=== PATIENT | female | born 1950 | race Caucasian/White ===

== ENCOUNTER 2021-06-23 16:09 | Inpatient (IN) ==
--- NOTE | 2021-06-23 17:26 | Emergency Department Note ---
GI Bleed HPI General Chief complaint: Rectal Bleed Stated complaint: Low h&h, lower gi bleed Time Seen by Provider: 06/23/21 17:05 Source: EMS Mode of arrival: EMS Limitations: no limitations History of Present Illness HPI Narrative: Narrative: The patient presents from [facility] for reportedly having a GI bleed with anemia. The patient has a history of chronic anemia with a hemoglobin of baseline around 8. She said that last night she started to feel short of breath with exertion and when she went to the hospital, they said that her hemoglobin was lower than normal. They did a guaiac test on her stool and it was positive. They did a Covid test and it was negative. They attempted to transfer to another facility but were told that they did not have GI available and so transferred here. Unfortunately, we do not have GI available either. The patient denies nausea or vomiting. She denies abdominal pain. She denies chest pain. She denies dyspnea at rest. She does complain of the darker stools. She does complain of the dyspnea on exertion. She denies any other symptoms. Related Data Home Medications Medication Instructions Recorded Confirmed albuterol sulfate 90 mcg/actuation 2 puff INHALATION Q4-6H PRN g 01/20/16 03/10/21 aerosol inhaler blood sugar diagnostic 01/20/16 03/10/21 blood-glucose meter 01/20/16 03/10/21 fluoxetine 20 mg capsule 20 mg PO QDAY 01/20/16 03/10/21 albuterol sulfate 0.63 mg/3 mL 2.5 mg INHALATION Q4H PRN 04/08/16 03/10/21 solution for nebulization budesonide-formoterol [Symbicort] INHALATION BID 07/03/17 03/10/21 cholecalciferol (vitamin D3) 125 5,000 unit PO QDAY 01/23/19 03/10/21 mcg (5,000 unit) capsule atorvastatin 20 mg tablet 20 mg PO QHS tab 03/27/19 03/10/21 melatonin 10 mg capsule 10 mg PO HS PRN 12/31/19 03/10/21 insulin glargine 100 unit/mL (3 See Rx Instructions .ROUTE 03/16/20 03/10/21 mL) subcutaneous pen .COMPLEX 20 Days ml sitagliptin 25 mg tablet 25 mg PO QDAY 02/19/21 03/10/21 furosemide 40 mg tablet 40 mg PO QAM 03/10/21 03/10/21 prednisone 10 mg tablet 10 mg PO QDAY 03/10/21 03/10/21 Previous Rx's Medication Instructions Recorded gabapentin 400 mg capsule 400 mg PO QHS #90 cap 10/26/20 omeprazole 40 mg capsule,delayed 40 mg PO QDAY #30 cap 01/21/21 release Automated BP Cuff and pulse See Rx Instructions .ROUTE 02/19/21 .COMPLEX #1 ea diltiazem HCl 30 mg tablet 30 mg PO Q8H #90 tab 03/10/21 Allergies Allergy/AdvReac Type Severity Reaction Status Date / Time vancomycin [VANCOMYCIN] Allergy Severe ANAPHYLAXIS Verified 06/23/21 16:09 (CAN'T BREATH), HIVES allopurinol Allergy Intermediate Rash Verified 06/23/21 16:09 codeine [CODEINE] Allergy Intermediate HIVES Verified 06/23/21 16:09 hydrocodone [HYDROCODONE] Allergy Intermediate HIVES Verified 06/23/21 16:09 cephalexin Allergy Unknown Rash Verified 06/23/21 16:09 Ertapenem Allergy Unknown Hives/Skin Verified 06/23/21 16:09 Rash Review of Systems ROS ROS Narrative: Narrative: All systems ED: reviewed and negative except as stated. PFSH Narrative Patient History Narrative: Narrative: Medical/Surgical/Family History All Active Problems (Updated 06/23/21 @ 19:26 by Nabeel Robles MD) Chronic kidney disease (CKD), stage III (moderate) (Chronic) Diabetes mellitus, type II (Chronic) Hypertension (Chronic) Obesity (Chronic) Hyperlipidemia (Chronic) Metabolic syndrome (Chronic) Gout (Chronic) Fatigue (Chronic) Cough (Chronic) Multiple nodules of lung (Chronic) Pneumonia (Chronic) Chronic cough (Chronic) Dyspnea (Chronic) Wheezing (Chronic) Environmental allergies (Chronic) Pruritus (Chronic) Headache (Chronic) Chest pain (Chronic) Edema (Chronic) Chills (Chronic) Fever (Chronic) Malaise (Chronic) Night sweats (Chronic) Back pain (Chronic) Joint pain (Chronic) Lethargy (Chronic) Pale (Chronic) Decreased hearing (Chronic) Erythema (Chronic) Shallow breathing (Chronic) Lung nodule, solitary (Chronic) Disease (Chronic) Onychomycosis (Chronic) Hyponatremia (Chronic) Hyperkalemia (Chronic) COAD (chronic obstructive airways disease) (Chronic) Gastric reflux (Chronic) Cellulitis of lower leg (Chronic) Osteomyelitis (Chronic) Diarrhea (Chronic) Knee pain, bilateral (Chronic) Congestive heart failure (Acute) 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, 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) Controlled type 2 diabetes mellitus with diabetic polyneuropathy, with long-term current use of insulin (Chronic) Chronic respiratory failure not affecting current episode of care (Chronic) CKD stage 4 due to type 2 diabetes mellitus (Chronic) Controlled type 2 diabetes mellitus with chronic kidney disease, with long-term current use of insulin (Chronic) Hydronephrosis determined by ultrasound (Chronic) Multiple renal calculi (Chronic) Anemia (Acute) Acute GI bleeding (Acute) Medical History (Updated 06/23/21 @ 19:26 by Nabeel Robles MD) Back pain Cellulitis of lower leg Chest pain Chills Chronic cough Chronic kidney disease (CKD), stage III (moderate) CKD stage 4 due to type 2 diabetes mellitus Urine protein/Cr ratio ~3 in 2018. HgA1c good at present time COAD (chronic obstructive airways disease) Controlled type 2 diabetes mellitus with chronic kidney disease, with long-term current use of insulin It is my opinion this patient's diabetes is well controlled and while she has concomitant polyneuropathy I am thinking this is not the primary cause of her CKD 4. 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, worse at night Cough Decreased hearing Diabetes mellitus, type II Diarrhea Disease Bibasilar airspace disease with progression in the lingular region Dyspnea Edema Environmental allergies Erythema Fatigue Fever Gastric reflux Gout Headache Hyperkalemia Hyperlipidemia Hypertension Hyponatremia Joint pain Knee pain, bilateral Lethargy Lung nodule, solitary Malaise Metabolic syndrome Multiple nodules of lung Circumscribed nodules in the bases of both lungs Night sweats Obesity Onychomycosis Osteomyelitis Pale Pneumonia Pruritus Shallow breathing Wheezing Surgical History History of cholecystectomy History of elbow surgery History of eye surgery History of tubal ligation Family History (Updated 02/14/20 @ 10:26 by Emely M Lucio, RN) Other Diabetes HTN (hypertension) Social History Smoking Status: Former smoker Alcohol Intake Frequency: does not drink Substance Use: does not use Exam Narrative Narrative: Narrative: General Limitations: no limitations General appearance: Present alert and in no apparent distress Head Head: Present atraumatic and normal inspection Eye Eye: Present normal appearance ENT ENT: Present mucous membranes moist Neck Neck: Present normal inspection, full ROM and trachea midline Chest Chest: Present normal inspection and symmetric chest wall rise Respiratory Respiratory: Present normal lung sounds bilaterally; Absent respiratory distress Cardiovascular Cardiovascular: Present regular rate, normal rhythm and other (Bilateral radial 2+) Adbominal Abdominal: Present soft and normal bowel sounds; Absent distention, tenderness, guarding, rebound and rigidity Extremities Extremities: Present normal inspection, full ROM and pedal edema; Absent calf tenderness Back Back: Present full ROM Neurological Neurological: Present alert, oriented X3 and CN II-XII intact; Absent motor sensory deficit Psychiatric Psychiatric: Present normal affect and normal mood Skin Skin: Present warm (WNL) and dry Course Reevaluation(s) Reevaluation #1: I spoke to the general surgeon, Dr. Villafana. He said he would be willing to do the endoscopy has a consult if the hospitalist would be willing to admit Time: 19:11 Reevaluation #2: I spoke to the hospitalist, Dr. Henson. He said he would come down to evaluate the patient for local admission Time: 19:24 Vital Signs Vital signs: Vital Signs Temperature 98.1 F 06/23/21 16:09 Pulse Rate 110 H 06/23/21 16:09 Respiratory Rate 20 06/23/21 16:09 Blood Pressure 165/58 06/23/21 16:09 Pulse Oximetry (%) 94 06/23/21 16:09 Temperature 98.1 F 06/23/21 16:09 Pulse Rate 102 H 06/23/21 19:58 Respiratory Rate 19 06/23/21 19:58 Blood Pressure 141/65 06/23/21 19:16 Pulse Oximetry (%) 93 06/23/21 19:58 [facility] MDM Narrative Medical decision making narrative: Narrative: The patient presents for GI bleed and anemia. Given lack of any nausea or vomiting, gastric bleeding is unlikely. Patient is hemodynamically stable. We do not have GI on-call for us unfortunately. Patient states that she would like to go home if possible. Plan to repeat some of the labs. A CBC, CMP, BNP, and troponin. We will obtain a chest x-ray and EKG. It may be possible that the patient can receive a transfusion here in the ED and be discharged with outpatient follow-up. If not, patient may need to be transferred to a facility that has GI. Lab Data Lab results reviewed: Yes I reviewed the patient's lab results. Result diagrams: 06/23/21 17:15 06/23/21 17:15 Labs: Lab Results 06/23/21 06/23/21 06/23/21 Range/Units 17:15 17:15 17:15 WBC 8.3 (4.5-11.0) K/mcL RBC 1.94 L (3.59-5.38) M/mcL Hgb 5.7 L* (11.2-15.7) g/dL Hct 18.7 L* (34.1-44.9) % MCV 96.4 (80.0-100.0) fL MCH 29.4 (26.0-34.0) pg MCHC 30.5 L (31.0-36.0) g/dL RDW 13.2 (11.5-14.5) % Plt Count 267 (140-440) K/mcL MPV 8.9 (7.4-10.4) fL Neut % (Auto) 94.3 H (38.0-78.0) % Lymph % (Auto) 3.6 L (15.5-49.0) % [place] % (Auto) 2.0 (1.0-12.0) % Eos % (Auto) 0 (0.0-7.0) % Baso % (Auto) 0.1 (0.0-2.0) % Lymph # (Auto) 0.30 L (1.50-4.80) K/mcL [place] # (Auto) 0.17 (0.10-0.90) K/mcL Eos # (Auto) 0 (0.00-0.70) K/mcL Baso # (Auto) 0.01 (0.00-0.30) K/mcL Absolute Neutrophils 7.86 (1.80-8.00) K/mcL PT (11.9-14.5) sec INR (0.9-1.1) APTT (20.0-37.0) sec Sodium 133 (133-145) mmol/L Potassium 4.8 (3.3-5.1) mmol/L Chloride 97 (96-108) mmol/L Carbon Dioxide 21 L (22-30) mmol/L Anion Gap 15.0 (8.0-16.0) BUN 49 H (8-23) mg/dL Creatinine 2.4 H (0.6-1.1) mg/dL GFR Calculation 20 Glucose 394 H (70-105) mg/dL Calcium 8.8 (8.6-10.4) mg/dL Total Bilirubin < 0.2 (0.1-1.0) mg/dL AST 13 (<32) U/L ALT 13 (<40) U/L Alkaline Phosphatase 53 (39-117) U/L Troponin T 0.11 H* (<0.03) ng/mL Total Protein 6.6 (5.9-8.4) gm/dL Albumin 3.1 L (3.2-5.2) gm/dL Globulin 3.5 (2.2-3.7) gm/dL Albumin/Globulin Ratio 0.9 L (1.0-2.3) 06/23/21 Range/Units 17:16 WBC (4.5-11.0) K/mcL RBC (3.59-5.38) M/mcL Hgb (11.2-15.7) g/dL Hct (34.1-44.9) % MCV (80.0-100.0) fL MCH (26.0-34.0) pg MCHC (31.0-36.0) g/dL RDW (11.5-14.5) % Plt Count (140-440) K/mcL MPV (7.4-10.4) fL Neut % (Auto) (38.0-78.0) % Lymph % (Auto) (15.5-49.0) % [place] % (Auto) (1.0-12.0) % Eos % (Auto) (0.0-7.0) % Baso % (Auto) (0.0-2.0) % Lymph # (Auto) (1.50-4.80) K/mcL [place] # (Auto) (0.10-0.90) K/mcL Eos # (Auto) (0.00-0.70) K/mcL Baso # (Auto) (0.00-0.30) K/mcL Absolute Neutrophils (1.80-8.00) K/mcL PT 13.9 (11.9-14.5) sec INR 1.0 (0.9-1.1) APTT 38.0 H (20.0-37.0) sec Sodium (133-145) mmol/L Potassium (3.3-5.1) mmol/L Chloride (96-108) mmol/L Carbon Dioxide (22-30) mmol/L Anion Gap (8.0-16.0) BUN (8-23) mg/dL Creatinine (0.6-1.1) mg/dL GFR Calculation Glucose (70-105) mg/dL Calcium (8.6-10.4) mg/dL Total Bilirubin (0.1-1.0) mg/dL AST (<32) U/L ALT (<40) U/L Alkaline Phosphatase (39-117) U/L Troponin T (<0.03) ng/mL Total Protein (5.9-8.4) gm/dL Albumin (3.2-5.2) gm/dL Globulin (2.2-3.7) gm/dL Albumin/Globulin Ratio (1.0-2.3) EKG Data EKG #1: EKG attestation: Yes I reviewed and interpreted this EKG. and Yes There are no EKG findings of acute coronary syndrome EKG results narrative: Sinus, rate 100, normal axis, QTC 454, OK 156, n arrow complex QRS, no acute ST or T changes Discharge Plan Patient/Caregiver Discharge Instructions Pt seen by CHILD CARE CENTRE MANAGER/PA only: No Clinical Impression: Acute GI bleeding Anemia Qualifiers: Anemia type: other cause Other causes of anemia: acute posthemorrhagic Qualified Code(s): D62 - Acute posthemorrhagic anemia Patient Disposition: Xfer As Inpt ([facility]) Follow up with: Papo Guerra MD [Primary Care Provider] - Prescriptions: No Action gabapentin 400 mg capsule 400 mg PO QHS Qty: 90 RF: 3 omeprazole 40 mg capsule,delayed release(DR/EC) 40 mg PO QDAY Qty: 30 RF: 11 (DME) blood-glucose meter [Trueresult Blood Glucose Systm] [facility] [place] See Dose Instructions .ROUTE .MEDSUPPLY RF: 0 (DME) blood sugar diagnostic [Truetest Test Strips] strip See Dose Instructions .ROUTE .MEDSUPPLY RF: 0 albuterol sulfate [ProAir HFA] 90 mcg/actuation HFA aerosol inhaler 2 puff INHALATION Q4-6H PRNRF: 0 fluoxetine 20 mg capsule 20 mg PO QDAY RF: 0 albuterol sulfate 0.63 mg/3 mL solution for nebulization 2.5 mg INHALATION Q4H PRNRF: 0 insulin glargine 100 unit/mL (3 mL) insulin pen See Rx Instructions .ROUTE .COMPLEX 20 Days RF: 0 budesonide-formoterol INHALATION BID RF: 0 cholecalciferol (vitamin D3) 5,000 unit capsule 5,000 unit PO QDAY RF: 0 atorvastatin 20 mg tablet 20 mg PO QHS RF: 0 melatonin 10 mg capsule 10 mg PO HS PRNRF: 0 Januvia 25 mg tablet 25 mg PO QDAY RF: 0 Automated BP Cuff and pulse See Rx Instructions .ROUTE .COMPLEX Qty: 1 RF: 0 furosemide 40 mg tablet 40 mg PO QAM RF: 0 prednisone 10 mg tablet 10 mg PO QDAY RF: 0 diltiazem HCl 30 mg tablet 30 mg PO Q8H Qty: 90 RF: 11
[2021-06-23 18:26] LABS: Prothrombin Time 13.9 sec (11.9-14.5)
[2021-06-23 18:47] LABS: Basophils # (Auto) 0.01 K/mcL (0.00-0.30); Basophils % (Auto) 0.1 % (0.0-2.0); Eosinophils # (Auto) 0 K/mcL (0.00-0.70); Eosinophils % (Auto) 0 % (0.0-7.0); Hematocrit 18.7 % (34.1-44.9); Hemoglobin 5.7 g/dL (11.2-15.7); Lymphocytes % (Auto) 3.6 % (15.5-49.0); Mean Cell Volume 96.4 fL (80.0-100.0); Mean Corpuscular HGB Conc 30.5 g/dL (31.0-36.0); Mean Platelet Volume 8.9 fL (7.4-10.4); Monocytes # (Auto) 0.17 K/mcL (0.10-0.90); Neutrophils % (Auto) 94.3 % (38.0-78.0); Platelet Count 267 K/mcL (140-440); RBC 1.94 M/mcL (3.59-5.38); Red Cell Distribution Width 13.2 % (11.5-14.5); WBC 8.3 K/mcL (4.5-11.0)
[2021-06-23 18:56] LABS: ALT/SGPT 13 U/L (<40); AST/SGOT 13 U/L (<32); Albumin 3.1 gm/dL (3.2-5.2); Albumin/Globulin Ratio 0.9 (1.0-2.3); Alkaline Phosphatase 53 U/L (39-117); Bilirubin,Total < 0.2 mg/dL (0.1-1.0); Blood Urea Nitrogen 49 mg/dL (8-23); Calcium 8.8 mg/dL (8.6-10.4); Carbon Dioxide 21 mmol/L (22-30); Chloride 97 mmol/L (96-108); Globulin 3.5 gm/dL (2.2-3.7); Glomerular Filtration Rate 20; Glucose 394 mg/dL (70-105)
[2021-06-23] MEDS ORDERED: 0.9 % SODIUM CHLORIDE 250 ML IV SCH ×2 (19:00→22:45)
[2021-06-23] MEDS ORDERED: FUROSEMIDE 40 MG/4 ML VIAL IV ONE (19:41)
--- NOTE | 2021-06-23 19:44 | Internal Med History&Physical ---
HPI History of Present Illness Patient information: Note initiated : 06/23/21 at 7:37 pm Service Date, if different from initiated Date: [] Patient: Kayleen Wilson a 71 y/o F admitted on for Low h&h, lower gi bleed. Chief Complaint: [] History of present illness: Ms. Wilson is a 71 year old F Went into pulmonary hospital last night short of breath. She says they told her she had fluid on her lungs and gave her 60 mg of Lasix this morning she was urinating quite a bit as her shortness of breath is improved. However today she had dark tarry stools guaiac positive with a hemoglobin of 5.7 this is transferred here. She is mildly tachycardic but blood pressure stable. Case discussed with Dr. Villafana who will perform endoscopy. Patient states she has chronic cough from COPD is on 3 L normally. She says she has chronic edema in her legs but that has not changed. And she has a chronic chronic troponin elevation noted in the ER. She denies chest pain. She did have some dizziness lightheadedness yesterday. Review of Systems: Pertinent positives as above plus headache. Denies fever/chills/nausea/vomiting/chest or abdominal pain/cough/dyspnea. Remaining 10 point review of system reviewed negative PFSH PFSH All Active Problems (Updated 06/23/21 @ 19:26 by Nabeel Robles MD) Chronic kidney disease (CKD), stage III (moderate) (Chronic) Diabetes mellitus, type II (Chronic) Hypertension (Chronic) Obesity (Chronic) Hyperlipidemia (Chronic) Metabolic syndrome (Chronic) Gout (Chronic) Fatigue (Chronic) Cough (Chronic) Multiple nodules of lung (Chronic) Pneumonia (Chronic) Chronic cough (Chronic) Dyspnea (Chronic) Wheezing (Chronic) Environmental allergies (Chronic) Pruritus (Chronic) Headache (Chronic) Chest pain (Chronic) Edema (Chronic) Chills (Chronic) Fever (Chronic) Malaise (Chronic) Night sweats (Chronic) Back pain (Chronic) Joint pain (Chronic) Lethargy (Chronic) Pale (Chronic) Decreased hearing (Chronic) Erythema (Chronic) Shallow breathing (Chronic) Lung nodule, solitary (Chronic) Disease (Chronic) Onychomycosis (Chronic) Hyponatremia (Chronic) Hyperkalemia (Chronic) COAD (chronic obstructive airways disease) (Chronic) Gastric reflux (Chronic) Cellulitis of lower leg (Chronic) Osteomyelitis (Chronic) Diarrhea (Chronic) Knee pain, bilateral (Chronic) Congestive heart failure (Acute) 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, 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) Controlled type 2 diabetes mellitus with diabetic polyneuropathy, with long-term current use of insulin (Chronic) Chronic respiratory failure not affecting current episode of care (Chronic) CKD stage 4 due to type 2 diabetes mellitus (Chronic) Controlled type 2 diabetes mellitus with chronic kidney disease, with long-term current use of insulin (Chronic) Hydronephrosis determined by ultrasound (Chronic) Multiple renal calculi (Chronic) Anemia (Acute) Acute GI bleeding (Acute) Medical History (Updated 06/23/21 @ 19:26 by Nabeel Robles MD) Back pain Cellulitis of lower leg Chest pain Chills Chronic cough Chronic kidney disease (CKD), stage III (moderate) CKD stage 4 due to type 2 diabetes mellitus Urine protein/Cr ratio ~3 in 2018. HgA1c good at present time COAD (chronic obstructive airways disease) Controlled type 2 diabetes mellitus with chronic kidney disease, with long-term current use of insulin It is my opinion this patient's diabetes is well controlled and while she has concomitant polyneuropathy I am thinking this is not the primary cause of her CKD 4. 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, worse at night Cough Decreased hearing Diabetes mellitus, type II Diarrhea Disease Bibasilar airspace disease with progression in the lingular region Dyspnea Edema Environmental allergies Erythema Fatigue Fever Gastric reflux Gout Headache Hyperkalemia Hyperlipidemia Hypertension Hyponatremia Joint pain Knee pain, bilateral Lethargy Lung nodule, solitary Malaise Metabolic syndrome Multiple nodules of lung Circumscribed nodules in the bases of both lungs Night sweats Obesity Onychomycosis Osteomyelitis Pale Pneumonia Pruritus Shallow breathing Wheezing Surgical History History of cholecystectomy History of elbow surgery History of eye surgery History of tubal ligation Family History (Updated 02/14/20 @ 10:26 by Emely Valdes RN) Other Diabetes HTN (hypertension) Social History (Updated 02/14/20 @ 10:39 by Lawson Chandler MD) alcohol intake frequency: does not drink substance use type: does not use MEDS/ALLERGIES Home Medications and Allergies Home Medications Medication Instructions Recorded Confirmed Type albuterol sulfate 90 mcg/actuation 2 puff INHALATION Q4-6H PRN g 01/20/16 03/10/21 History aerosol inhaler blood sugar diagnostic 01/20/16 03/10/21 History blood-glucose meter 01/20/16 03/10/21 History fluoxetine 20 mg capsule 20 mg PO QDAY 01/20/16 03/10/21 History albuterol sulfate 0.63 mg/3 mL 2.5 mg INHALATION Q4H PRN 04/08/16 03/10/21 History solution for nebulization budesonide-formoterol [Symbicort] INHALATION BID 07/03/17 03/10/21 History cholecalciferol (vitamin D3) 125 5,000 unit PO QDAY 01/23/19 03/10/21 History mcg (5,000 unit) capsule atorvastatin 20 mg tablet 20 mg PO QHS tab 03/27/19 03/10/21 History melatonin 10 mg capsule 10 mg PO HS PRN 12/31/19 03/10/21 History insulin glargine 100 unit/mL (3 See Rx Instructions .ROUTE 03/16/20 03/10/21 History mL) subcutaneous pen .COMPLEX 20 Days ml gabapentin 400 mg capsule 400 mg PO QHS #90 cap 10/26/20 03/10/21 Rx omeprazole 40 mg capsule,delayed 40 mg PO QDAY #30 cap 01/21/21 03/10/21 Rx release Automated BP Cuff and pulse See Rx Instructions .ROUTE 02/19/21 03/10/21 Rx .COMPLEX #1 ea sitagliptin 25 mg tablet 25 mg PO QDAY 02/19/21 03/10/21 History diltiazem HCl 30 mg tablet 30 mg PO Q8H #90 tab 03/10/21 03/10/21 Rx furosemide 40 mg tablet 40 mg PO QAM 03/10/21 03/10/21 History prednisone 10 mg tablet 10 mg PO QDAY 03/10/21 03/10/21 History Allergies Allergy/AdvReac Type Severity Reaction Status Date / Time vancomycin [VANCOMYCIN] Allergy Severe ANAPHYLAXIS Verified 06/23/21 16:09 (CAN'T BREATH), HIVES allopurinol Allergy Intermediate Rash Verified 06/23/21 16:09 codeine [CODEINE] Allergy Intermediate HIVES Verified 06/23/21 16:09 hydrocodone [HYDROCODONE] Allergy Intermediate HIVES Verified 06/23/21 16:09 cephalexin Allergy Unknown Rash Verified 06/23/21 16:09 Ertapenem Allergy Unknown Hives/Skin Verified 06/23/21 16:09 Rash EXAM Constitutional Vitals: Temp Pulse Resp BP Pulse Ox 98.1 F 102 H 27 H 141/65 94 06/23/21 16:09 06/23/21 19:16 06/23/21 19:16 06/23/21 19:16 06/23/21 19:16 Exam: General: Alert, Awake, No acute Distress, obese Eyes/N/T: EOMI, PERRL, Head/Neck: neck supple, normocephalic atraumatic CV: Mildly tacky but regular, No murmurs, normal s1/s2 Pulm: Wheezing b/l and diminished, no rhonchi Abd: soft, nontender, +BS x4 Ext: no clubbing/cyanosis, 2-3+ b/l LE edema Neuro: Alert, no focal deficits, moves all extremities, CN 2-12 grossly intact, symmetrical strength b/l upper/lower, sensations intact b/l upper/lower Skin: warm/dry DATA Data Completed and Pending Labs: Labs from last 24 hours 06/23/21 06/23/21 06/23/21 17:16 17:16 17:15 WBC RBC Hgb Hct MCV MCH MCHC RDW Plt Count MPV Neut % (Auto) Lymph % (Auto) [place] % (Auto) Eos % (Auto) Baso % (Auto) Lymph # (Auto) [place] # (Auto) Eos # (Auto) Baso # (Auto) Absolute Neutrophils PT 13.9 INR 1.0 APTT 38.0 H Sodium Potassium Chloride Carbon Dioxide Anion Gap BUN Creatinine GFR Calculation Glucose Calcium Total Bilirubin AST ALT Alkaline Phosphatase Troponin T 0.11 H* B-Natriuretic Peptide Pending Total Protein Albumin Globulin Albumin/Globulin Ratio 06/23/21 06/23/21 17:15 17:15 WBC 8.3 RBC 1.94 L Hgb 5.7 L* Hct 18.7 L* MCV 96.4 MCH 29.4 MCHC 30.5 L RDW 13.2 Plt Count 267 MPV 8.9 Neut % (Auto) 94.3 H Lymph % (Auto) 3.6 L [place] % (Auto) 2.0 Eos % (Auto) 0 Baso % (Auto) 0.1 Lymph # (Auto) 0.30 L [place] # (Auto) 0.17 Eos # (Auto) 0 Baso # (Auto) 0.01 Absolute Neutrophils 7.86 PT INR APTT Sodium 133 Potassium 4.8 Chloride 97 Carbon Dioxide 21 L Anion Gap 15.0 BUN 49 H Creatinine 2.4 H GFR Calculation 20 Glucose 394 H Calcium 8.8 Total Bilirubin < 0.2 AST 13 ALT 13 Alkaline Phosphatase 53 Troponin T B-Natriuretic Peptide Total Protein 6.6 Albumin 3.1 L Globulin 3.5 Albumin/Globulin Ratio 0.9 L A/P Narrative A/P Narrative: A: *GI bleed: *Anemia, acute blood loss on chronic: -s/p lasix at outside facility *Acute on chronic Diastolic CHF: *COPD(3L NC @home): *CKD IV: Follows with Dr. Tran *DM: *HTN/HLD: *GERD: *Obesity: P: -2 PRBC transfusion with IV Lasix between, f/u H&H -Monitor fluid balance / weight closely -Dr. Villafana for endoscopy -cont home dilt/lasix -basal and ssi -cont home IH's -Medication reconciliation -pt/ot -ppx: SCD / home ppi full code Time Spent With Patient Time: Total time spent is greater than 50% in coordination of care (as documented) at patient's floor/unit and/or counseling patient:
--- NOTE | 2021-06-23 20:01 | EKG ---
[facility] Test Date: 2021-06-23 Pat Name: Kayleen Wilson Department: ED Room: Gender: Female [employer]: KW : 1950 Requested By: Nabeel Robles Order Number: [id number] Reading MD: Larry Gamez Measurements Intervals [place] Rate: 100 P: 80 TN: 156 QRS: 71 QRSD: 80 T: 67 QT: 352 QTc: 454 Interpretive Statements SINUS TACHYCARDIA Electronically Signed On 06-23-2021 20:01:20 PDT by Larry Gamez /store/[email or web address]/[id number]
[2021-06-23] MEDS ORDERED: METOCLOPRAMIDE 10 MG/2 ML VIAL IV PRN (21:19)
[2021-06-23] MEDS ORDERED: POTASSIUM CHLORIDE 20 MEQ TABLET PO PRN ×2 (21:19)
[2021-06-23] MEDS ORDERED: POTASSIUM CHLORIDE 40 MEQ in DEXTROSE 5% IN WATER 500 ML IV PRN (21:19)
[2021-06-23] MEDS ORDERED: ONDANSETRON 4 MG/2 ML VIAL IV PRN (21:19)
[2021-06-23] MEDS ORDERED: DEXTROSE 50% 50 ML VIAL IV PRN (21:19)
[2021-06-23] MEDS ORDERED: ACETAMINOPHEN 325 MG TABLET PO PRN (21:19)
[2021-06-23] MEDS ORDERED: MAGNESIUM SULFATE 2 GM/50 ML BAG IV PRN (21:19)
[2021-06-23] MEDS ORDERED: LABETALOL 5 MG/ML ML IV PRN (21:19)
[2021-06-23] MEDS ORDERED: DEXTROSE 31 GM ORAL.SUSP PO PRN (21:19)
[2021-06-23] MEDS ORDERED: DILTIAZEM 30 MG TABLET PO ONE (22:28)
[2021-06-23] MEDS ORDERED: GABAPENTIN 400 MG CAPSULE PO ONE (22:29)
[2021-06-23] MEDS ORDERED: INSULIN GLARGINE, HUMAN 1 UNIT/0.01 ML SQ ONE ×2 (22:30→22:42)
[2021-06-23] MEDS ORDERED: MELATONIN 3 MG TABLET PO ONE ×2 (22:31→22:42)
[2021-06-23] MEDS ORDERED: GABAPENTIN 300 MG CAPSULE ONE (22:43)
[2021-06-23] MEDS ORDERED: GABAPENTIN 100 MG CAPSULE PO ONE (22:44)
[2021-06-23] MEDS ORDERED: DILTIAZEM 30 MG TABLET ONE (22:44)
[2021-06-23] MEDS: INSULIN LISPRO 1 UNIT/0.01 ML UNIT SQ SCH (22:58)
[2021-06-23] MEDS: 0.9 % SODIUM CHLORIDE 10 ML SYRINGE IV SCH (23:03)
[2021-06-23] MEDS: IPRATROPIUM/ALBUTEROL 3 ML AMPUL.NEB NEB PRN (23:48)
[2021-06-24] MEDS ORDERED: FUROSEMIDE 40 MG/4 ML VIAL IV ONE (02:00)
--- NOTE | 2021-06-24 02:49 | XRay Report ---
CLINICAL INFORMATION: sob COMPARISON: 06/23/2021 and baseline film from 09/10/2017 FINDINGS: Moderate cardiomegaly is unchanged. Mediastinum is unremarkable pulmonary vessels and decreased in caliber are mildly distended. Interstitial edema throughout both lungs is improved. Mild vague patchy bibasilar atelectasis or infiltrate is unchanged. Smaller pleural effusion stable. IMPRESSION: Mild CHF-improved Mild patchy bibasilar airspace disease atelectasis versus infiltrate stable Interpreted and Authenticated by: Ap Chairez 06/24/21
[2021-06-24] MEDS: IPRATROPIUM/ALBUTEROL 3 ML AMPUL.NEB NEB PRN ×2 (04:07→15:57)
[2021-06-24] MEDS: 0.9 % SODIUM CHLORIDE 10 ML SYRINGE IV SCH ×3 (04:08→23:00)
--- NOTE | 2021-06-24 08:04 | Internal Med Progress Note ---
SUBJECTIVE Subjective Patient information: Note initiated : 06/24/21 at 7:58 am Service Date, if different from initiated Date: [] Patient: Kayleen Wilson a 71 y/o F admitted on 06/23/21 for Low h&h, lower gi bleed. Chief Complaint: [] Interval history: History of present illness: Ms. Wilson is a 71 year old F Went into pulmonary hospital last night short of breath. She says they told her she had fluid on her lungs and gave her 60 mg of Lasix this morning she was urinating quite a bit as her shortness of breath is improved. However today she had dark tarry stools guaiac positive with a hemoglobin of 5.7 this is transferred here. She is mildly tachycardic but blood pressure stable. Case discussed with Dr. Villafana who will perform endoscopy. Patient states she has chronic cough from COPD is on 3 L normally. She says she has chronic edema in her legs but that has not changed. And she has a chronic chronic troponin elevation noted in the ER. She denies chest pain. She did have some dizziness lightheadedness yesterday. 06/24 Patient says she feels better today. Denies bloody stools overnight. No other new complaints. Has chronic cough and shortness of breath. Chronic cough stable patient states shortness of breath is baseline at this point. Review of Systems: denies headache/fever/chills/nausea/vomiting/chest or abdominal pain/diarrhea. Otherwise see above. Constitutional Vitals: Vital Signs Temp Pulse Resp BP Pulse Ox 97.6 F 90 16 156/60 96 06/24/21 03:53 06/24/21 04:11 06/24/21 04:11 06/24/21 03:53 06/24/21 04:11 Period Temp Pulse Resp BP Sys/Arnold Pulse Ox Last 24 Hr 97.6 F-98.1 F 88-113 16-27 130-169/49-99 91-96 Intake and Output 06/23/21 06/24/21 06/24/21 21:59 05:59 13:59 Intake Total 1160 Output Total 1300 Balance -140 Weight 111.13 kg 111.856 kg Intake & Output: Intake & Output 06/23/21 06/24/21 06/24/21 21:59 05:59 13:59 Intake Total 1160 Output Total 1300 Balance -140 Weight 111.13 kg 111.856 kg Intake: IV 105 Sodium Chloride 0.9% 250 ml @ 105 20 mls/hr IV .[id number] [facility] Rx#: [id number] Oral 400 Blood Product 655 Output: Void Amount 1300 Exam: General: Alert, Awake, No acute Distress, obese Eyes/N/T: EOMI, Head/Neck: neck supple, CV: Mildly tacky but regular, No murmurs, Pulm: mild Wheezing b/l and diminished, no rhonchi Abd: soft, nontender, +BS x4 Ext: no clubbing/cyanosis, 2-3+ b/l LE edema Neuro: Alert, no focal deficits, moves all extremities, Skin: warm/dry OBJ DATA Labs CBC & Chem 7: 06/24/21 06:40 06/24/21 06:40 Labs: Abnormal Lab Results 06/23/21 06/23/21 06/23/21 17:16 17:15 17:15 RBC Hgb Hct MCHC Neut % (Auto) Lymph % (Auto) Lymph # (Auto) APTT 38.0 H Carbon Dioxide 21 L BUN 49 H Creatinine 2.4 H Glucose 394 H Troponin T 0.11 H* Albumin 3.1 L Albumin/Globulin Ratio 0.9 L 06/23/21 17:15 RBC 1.94 L Hgb 5.7 L* Hct 18.7 L* MCHC 30.5 L Neut % (Auto) 94.3 H Lymph % (Auto) 3.6 L Lymph # (Auto) 0.30 L APTT Carbon Dioxide BUN Creatinine Glucose Troponin T Albumin Albumin/Globulin Ratio Meds: Medications Acetaminophen (Acetaminophen 325 Mg Tablet) 650 mg PO Q6HP PRN; Protocol PRN Reason: Per Pain Protocol/Fever > 101 Albuterol/Ipratropium (Ipratropium/Albuterol 3 Ml Ampul.Neb) 3 ml NEB Q4HP PRN PRN Reason: Shortness Of Breath Last Admin: 06/24/21 04:07 Dose: 3 ml Documented by: Atorvastatin Calcium (Atorvastatin 20 Mg Tablet) 20 mg PO QHS [facility] Dextrose (Dextrose 50% 50 Ml Vial) 0 ml IV UD PRN PRN Reason: Hypoglycemia Diagnostic Test (Pha) (Accu-Chek 1 Each Strip) 1 each FS ACHS [facility]BIGNIEW Last Admin: 06/23/21 22:11 Dose: 1 each Documented by: Diltiazem HCl (Diltiazem 30 Mg Tablet) 30 mg PO TID [facility] Fluoxetine HCl (Fluoxetine Hcl 20 Mg Capsule) 20 mg PO QDAY [facility] Furosemide (Furosemide 40 Mg Tablet) 40 mg PO BID@0800,1600 [facility] Gabapentin (Gabapentin 400 Mg Capsule) 400 mg PO QHS [facility] Glucose (Dextrose 31 Gm Oral.Susp) 15 gm PO PRN PRN PRN Reason: Hypoglycemia Potassium Chloride 40 meq/ (Dextrose) 520 mls @ 130 mls/hr IV UD PRN PRN Reason: Potassium < 3 Magnesium Sulfate (Magnesium Sulfate) 2 gm in 50 mls @ 50 mls/hr IV UD PRN PRN Reason: Magnesium </= 1.6 Sodium Chloride (Sodium Chloride 0.9%) 250 mls @ 20 mls/hr IV .[id number] [facility] Stop: 06/24/21 11:14 Last Infusion: 06/24/21 04:09 Dose: Infused Documented by: Insulin Glargine (Insulin Glargine, Human 1 Unit/0.01 Ml) [facility] Glargine (Insulin Glargine, Human 1 Unit/0.01 Ml) 35 unit SQ DAILY@1900 [facility] Insulin Human Lispro (Insulin Lispro 1 Unit/0.01 Ml Unit) 0 unit SQ [facility]; Protocol Last Admin: 06/23/21 22:58 Dose: 12 unit Documented by: Labetalol HCl (Labetalol 5 Mg/Ml Ml) 0 mg IV Q2HP PRN PRN Reason: Hypertension Melatonin (Melatonin 3 Mg Tablet) 9 mg PO HS [facility] Metoclopramide HCl (Metoclopramide 10 Mg/2 Ml Vial) 10 mg IV Q6HP PRN PRN Reason: Nausea And Vomiting Ondansetron HCl (Ondansetron 4 Mg/2 Ml Vial) 4 mg IV Q4HP PRN PRN Reason: Nausea And Vomiting Budesonide- Formoterol 160/4.5 Mcg Inhaler 2 dose INH BID [facility] Potassium Chloride (Potassium Chloride 20 Meq Tablet) 40 meq PO UD PRN PRN Reason: Potssium is 3-3.5 Potassium Chloride (Potassium Chloride 20 Meq Tablet) 40 meq PO UD PRN PRN Reason: Potassium < 3 Sodium Chloride (0.9 % Sodium Chloride 10 Ml Syringe) 10 ml IV Q8 [facility] Last Admin: 06/24/21 04:08 Dose: 10 ml Documented by: A/P Narrative A/P Narrative: A: *GI bleed: *Anemia, acute blood loss on chronic: -s/p 2prbc (06/24) with good response *Acute on chronic Diastolic CHF: -s/p lasix at outside facility -cxr improved *COPD(3L NC @home): *COVID (+): no change in couch/dyspnea per pt *CKD IV: Follows with Dr. Tran *DM: *HTN/HLD: *GERD: *Obesity: P: -Monitor fluid balance / weight closely -Dr. Villafana for endoscopy -cont home dilt/lasix -echo pending -basal and ssi -cont home IH's -hold home ASA -pt/ot -ppx: SCD / home ppi full code Time Spent With Patient Time: Total time spent is greater than 50% in coordination of care (as documented) at patient's floor/unit and/or counseling patient: QUALITY VTE Deep Vein Thrombosis/Pulmonary Embolism Present on Admission: No
--- NOTE | 2021-06-24 08:28 | General Surgery Consult Note ---
HPI Data of Consult Patient: new to practice Consult date: 06/24/21 Primary Care Provider: Papo Guerra Consult Narrative History of present illness: History of present illness: Ms. Wilson is a 71 year old F Went into an outside hospital last night short of breath. She says they told her she had fluid on her lungs and gave her 60 mg of Lasix this morning she was urinating quite a bit as her shortness of breath is improved. However today she had dark tarry stools guaiac positive with a hemoglobin of 5.7 this is transferred here. She is mildly tachycardic but blood pressure stable. Patient states she has chronic cough from COPD is on 3 L normally. She says she has chronic edema in her legs but that has not changed. And she has a chronic chronic troponin elevation noted in the ER. She denies chest pain. She did have some dizziness lightheadedness yesterday. I was asked to see the patient secondary to possible GI bleed. She does report a colonoscopy done in the distant past, she is never had a upper endoscopy. She denies any abdominal pain or prior dark or melanotic stools. cc:: CC: Rock Henson Review of Systems Review of systems: All systems are reviewed, negative other than above PFSH PFSH All Active Problems Chronic kidney disease (CKD), stage III (moderate) (Chronic) Diabetes mellitus, type II (Chronic) Hypertension (Chronic) Obesity (Chronic) Hyperlipidemia (Chronic) Metabolic syndrome (Chronic) Gout (Chronic) Fatigue (Chronic) Cough (Chronic) Multiple nodules of lung (Chronic) Pneumonia (Chronic) Chronic cough (Chronic) Dyspnea (Chronic) Wheezing (Chronic) Environmental allergies (Chronic) Pruritus (Chronic) Headache (Chronic) Chest pain (Chronic) Edema (Chronic) Chills (Chronic) Fever (Chronic) Malaise (Chronic) Night sweats (Chronic) Back pain (Chronic) Joint pain (Chronic) Lethargy (Chronic) Pale (Chronic) Decreased hearing (Chronic) Erythema (Chronic) Shallow breathing (Chronic) Lung nodule, solitary (Chronic) Disease (Chronic) Onychomycosis (Chronic) Hyponatremia (Chronic) Hyperkalemia (Chronic) COAD (chronic obstructive airways disease) (Chronic) Gastric reflux (Chronic) Cellulitis of lower leg (Chronic) Osteomyelitis (Chronic) Diarrhea (Chronic) Knee pain, bilateral (Chronic) Congestive heart failure (Acute) 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, 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) Controlled type 2 diabetes mellitus with diabetic polyneuropathy, with long-term current use of insulin (Chronic) Chronic respiratory failure not affecting current episode of care (Chronic) CKD stage 4 due to type 2 diabetes mellitus (Chronic) Controlled type 2 diabetes mellitus with chronic kidney disease, with long-term current use of insulin (Chronic) Hydronephrosis determined by ultrasound (Chronic) Multiple renal calculi (Chronic) Anemia (Acute) Acute GI bleeding (Acute) Medical History Back pain Cellulitis of lower leg Chest pain Chills Chronic cough Chronic kidney disease (CKD), stage III (moderate) CKD stage 4 due to type 2 diabetes mellitus Urine protein/Cr ratio ~3 in 2018. HgA1c good at present time COAD (chronic obstructive airways disease) Controlled type 2 diabetes mellitus with chronic kidney disease, with long-term current use of insulin It is my opinion this patient's diabetes is well controlled and while she has concomitant polyneuropathy I am thinking this is not the primary cause of her CKD 4. 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, worse at night Cough Decreased hearing Diabetes mellitus, type II Diarrhea Disease Bibasilar airspace disease with progression in the lingular region Dyspnea Edema Environmental allergies Erythema Fatigue Fever Gastric reflux Gout Headache Hyperkalemia Hyperlipidemia Hypertension Hyponatremia Joint pain Knee pain, bilateral Lethargy Lung nodule, solitary Malaise Metabolic syndrome Multiple nodules of lung Circumscribed nodules in the bases of both lungs Night sweats Obesity Onychomycosis Osteomyelitis Pale Pneumonia Pruritus Shallow breathing Wheezing Surgical History History of cholecystectomy History of elbow surgery History of eye surgery History of tubal ligation Family History Other Diabetes HTN (hypertension) Social History alcohol intake frequency: does not drink substance use type: does not use MEDS/ALLERGIES Home Medications and Allergies Home Medications Medication Instructions Recorded Confirmed Type albuterol sulfate 90 mcg/actuation 2 puff INHALATION Q4-6H PRN g 01/20/16 06/23/21 History aerosol inhaler blood sugar diagnostic 01/20/16 03/10/21 History blood-glucose meter 01/20/16 03/10/21 History fluoxetine 20 mg capsule 20 mg PO QDAY 01/20/16 06/23/21 History albuterol sulfate 0.63 mg/3 mL 2.5 mg INHALATION Q4H PRN 04/08/16 06/23/21 History solution for nebulization budesonide-formoterol [Symbicort] 2 inh INHALATION BID 07/03/17 06/23/21 History cholecalciferol (vitamin D3) 125 5,000 unit PO QDAY 01/23/19 06/23/21 History mcg (5,000 unit) capsule atorvastatin 20 mg tablet 20 mg PO QHS tab 03/27/19 06/23/21 History melatonin 10 mg capsule 10 mg PO HS 12/31/19 06/23/21 History insulin glargine 100 unit/mL (3 25 unit SUBCUT QAMAC 20 Days ml 03/16/20 06/23/21 History mL) subcutaneous pen gabapentin 400 mg capsule 400 mg PO QHS #90 cap 10/26/20 06/23/21 Rx Automated BP Cuff and pulse See Rx Instructions .ROUTE 02/19/21 06/23/21 Rx .COMPLEX #1 ea sitagliptin 25 mg tablet 25 mg PO QDAY 02/19/21 06/23/21 History furosemide 40 mg tablet 40 mg PO 0800,1600 03/10/21 06/23/21 History prednisone 10 mg tablet 10 mg PO QDAY 03/10/21 03/10/21 History diltiazem HCl 30 mg PO TID 06/23/21 06/23/21 History insulin glargine U-300 conc 35 unit SUBCUT 1900 06/23/21 06/23/21 History omeprazole 40 mg PO HS 06/23/21 06/23/21 History Allergies Allergy/AdvReac Type Severity Reaction Status Date / Time vancomycin [VANCOMYCIN] Allergy Severe ANAPHYLAXIS Verified 06/23/21 16:09 (CAN'T BREATH), HIVES allopurinol Allergy Intermediate Rash Verified 06/23/21 16:09 codeine [CODEINE] Allergy Intermediate HIVES Verified 06/23/21 16:09 hydrocodone [HYDROCODONE] Allergy Intermediate HIVES Verified 06/23/21 16:09 cephalexin Allergy Unknown Rash Verified 06/23/21 16:09 Ertapenem Allergy Unknown Hives/Skin Verified 06/23/21 16:09 Rash Physical Examination Vital Signs Vital signs: Temp Pulse Resp BP Pulse Ox 97.6 F 90 16 156/60 96 06/24/21 03:53 06/24/21 04:11 06/24/21 04:11 06/24/21 03:53 06/24/21 04:11 General physical appearance General physical exam: well developed, well nourished and no distress Eyes Eye exam: PERRL and normal ocular movement ENT ENT exam: normal pinna, normal nares, normal mucosa, no hearing loss and no congestion Head Head exam IM: Present atraumatic and normocephalic Neck Neck exam: no masses, no bruits, trachea midline, no lymphadenopathy and no venous distension Cardiovascular Cardiovascular exam IM: Present normal rate and rhythm Respiratory Respiratory exam: normal expansion, normal respiratory effort, clear to percussion and clear to auscultation Abdomen Abdomen: Present soft, non tender and bowel sounds Hernia: Present none Genitourinary Genitourinary (Female): Present normal external genitalia Rectum Rectum: Present normal sphincter tone, no hemorrhoids, no tenderness, no masses and no bleeding Integumentary Integumentary: Present no rash, no growths and no abnormal pigmentation Neurologic Neurologic: Present normal coordination and normal sensation Musculoskeletal Musculoskeletal: Present normal gait and normal posture Psychiatric Psychiatric: Present oriented to time, oriented to person, oriented to place, speech is normal and memory intact Results Labs Result diagrams: 06/23/21 17:15 06/23/21 17:15 Labs: Abnormal lab results 06/23/21 06/23/21 06/23/21 Range/Units 17:15 17:15 17:15 RBC 1.94 L (3.59-5.38) M/mcL Hgb 5.7 L* (11.2-15.7) g/dL Hct 18.7 L* (34.1-44.9) % MCHC 30.5 L (31.0-36.0) g/dL Neut % (Auto) 94.3 H (38.0-78.0) % Lymph % (Auto) 3.6 L (15.5-49.0) % Lymph # (Auto) 0.30 L (1.50-4.80) K/mcL APTT (20.0-37.0) sec Carbon Dioxide 21 L (22-30) mmol/L BUN 49 H (8-23) mg/dL Creatinine 2.4 H (0.6-1.1) mg/dL Glucose 394 H (70-105) mg/dL Troponin T 0.11 H* (<0.03) ng/mL Albumin 3.1 L (3.2-5.2) gm/dL Albumin/Globulin Ratio 0.9 L (1.0-2.3) 06/23/21 Range/Units 17:16 RBC (3.59-5.38) M/mcL Hgb (11.2-15.7) g/dL Hct (34.1-44.9) % MCHC (31.0-36.0) g/dL Neut % (Auto) (38.0-78.0) % Lymph % (Auto) (15.5-49.0) % Lymph # (Auto) (1.50-4.80) K/mcL APTT 38.0 H (20.0-37.0) sec Carbon Dioxide (22-30) mmol/L BUN (8-23) mg/dL Creatinine (0.6-1.1) mg/dL Glucose (70-105) mg/dL Troponin T (<0.03) ng/mL Albumin (3.2-5.2) gm/dL Albumin/Globulin Ratio (1.0-2.3) Diabetes panel 06/23/21 Range/Units 17:15 Sodium 133 (133-145) mmol/L Potassium 4.8 (3.3-5.1) mmol/L Chloride 97 (96-108) mmol/L Carbon Dioxide 21 L (22-30) mmol/L BUN 49 H (8-23) mg/dL Creatinine 2.4 H (0.6-1.1) mg/dL Glucose 394 H (70-105) mg/dL Calcium 8.8 (8.6-10.4) mg/dL AST 13 (<32) U/L ALT 13 (<40) U/L Alkaline Phosphatase 53 (39-117) U/L Total Protein 6.6 (5.9-8.4) gm/dL Albumin 3.1 L (3.2-5.2) gm/dL Calcium panel 06/23/21 Range/Units 17:15 Calcium 8.8 (8.6-10.4) mg/dL Albumin 3.1 L (3.2-5.2) gm/dL Pituitary panel 06/23/21 Range/Units 17:15 Sodium 133 (133-145) mmol/L Potassium 4.8 (3.3-5.1) mmol/L Chloride 97 (96-108) mmol/L Carbon Dioxide 21 L (22-30) mmol/L BUN 49 H (8-23) mg/dL Creatinine 2.4 H (0.6-1.1) mg/dL Glucose 394 H (70-105) mg/dL Calcium 8.8 (8.6-10.4) mg/dL Adrenal panel 06/23/21 Range/Units 17:15 Sodium 133 (133-145) mmol/L Potassium 4.8 (3.3-5.1) mmol/L Chloride 97 (96-108) mmol/L Carbon Dioxide 21 L (22-30) mmol/L BUN 49 H (8-23) mg/dL Creatinine 2.4 H (0.6-1.1) mg/dL Glucose 394 H (70-105) mg/dL Calcium 8.8 (8.6-10.4) mg/dL Total Bilirubin < 0.2 (0.1-1.0) mg/dL AST 13 (<32) U/L ALT 13 (<40) U/L Alkaline Phosphatase 53 (39-117) U/L Total Protein 6.6 (5.9-8.4) gm/dL Albumin 3.1 L (3.2-5.2) gm/dL All other labs normal. A/P Assessment and plan (1) Chronic kidney disease (CKD), stage III (moderate): Status: Chronic (2) Diabetes mellitus, type II: Status: Chronic (3) Hypertension: Status: Chronic (4) Obesity: Status: Chronic (5) Dyspnea: Status: Chronic (6) COAD (chronic obstructive airways disease): Status: Chronic (7) Anemia: Status: Acute Qualifiers: Anemia type: other cause Other causes of anemia: acute posthemorrhagic Qualified Code(s): D62 - Acute posthemorrhagic anemia (8) Acute GI bleeding: Status: Acute Narrative A/P Narrative: This is a pleasant 71-year-old female with multiple medical problems who presents with decreased hemoglobin and melanotic stools most consi stent with an upper GI bleed. Risk, benefits, alternatives to work-up discussed with her at length including doing an EGD and if negative proceeding with colonoscopy. She verbalizes understanding, all of her questions are answered and she desires to continue. Plan: EGD today, if negative will discuss colonoscopy tomorrow. Time Spent With Patient Time: Total time spent is greater than 50% in coordination of care (as docum ented) at patient's floor/unit and/or counseling patient:
[2021-06-24 08:49] LABS: Prothrombin Time 14.2 sec (11.9-14.5)
[2021-06-24 08:56] LABS: Basophils # (Auto) 0.02 K/mcL (0.00-0.30); Basophils % (Auto) 0.2 % (0.0-2.0); Eosinophils # (Auto) 0 K/mcL (0.00-0.70); Eosinophils % (Auto) 0 % (0.0-7.0); Hematocrit 26.3 % (34.1-44.9); Hemoglobin 8.2 g/dL (11.2-15.7); Lymphocytes % (Auto) 3.9 % (15.5-49.0); Mean Cell Volume 97.4 fL (80.0-100.0); Mean Corpuscular HGB Conc 31.2 g/dL (31.0-36.0); Mean Platelet Volume 8.7 fL (7.4-10.4); Monocytes # (Auto) 1.14 K/mcL (0.10-0.90); Monocytes % (Auto) 8.9 % (1.0-12.0); Platelet Count 275 K/mcL (140-440); Red Cell Distribution Width 13.4 % (11.5-14.5); WBC 12.7 K/mcL (4.5-11.0)
[2021-06-24 09:08] LABS: ALT/SGPT 13 U/L (<40); AST/SGOT 16 U/L (<32); Albumin 2.9 gm/dL (3.2-5.2); Albumin/Globulin Ratio 0.8 (1.0-2.3); Alkaline Phosphatase 49 U/L (39-117); Bilirubin,Direct < 0.2 mg/dL (0-0.3); Bilirubin,Total 0.2 mg/dL (0.1-1.0); Blood Urea Nitrogen 55 mg/dL (8-23); Carbon Dioxide 21 mmol/L (22-30); Chloride 99 mmol/L (96-108); Globulin 3.5 gm/dL (2.2-3.7); Glomerular Filtration Rate 18; Glucose 282 mg/dL (70-105); Lactate Dehydrogenase 301 U/L (135-225); Phosphorous 3.8 mg/dL (2.5-4.5); Triglycerides 150 mg/dL (<150); Uric Acid 8.7 mg/dL (2.5-8.0)
--- NOTE | 2021-06-24 09:42 | XRay Report ---
CLINICAL INFORMATION: Follow-up CHF COMPARISON: 06/23/2021 FINDINGS: Moderate cardiomegaly is unchanged. Mediastinum is normal. Pulmonary vessels show slight decrease in caliber and there is mild improvement in peribronchial vascular edema. Minimal bibasilar airspace atelectasis has improved. IMPRESSION: Mild CHF-improving. Interpreted and Authenticated by: Ap Chairez 06/24/21
[2021-06-24] MEDS: DILTIAZEM 30 MG TABLET PO SCH ×3 (09:58→19:25)
[2021-06-24] MEDS: FLUoxetine HCL 20 MG CAPSULE PO SCH (09:59)
[2021-06-24] MEDS: FUROSEMIDE 40 MG TABLET PO SCH ×2 (09:59→16:32)
[2021-06-24] MEDS: INSULIN LISPRO 1 UNIT/0.01 ML UNIT SQ SCH ×4 (10:29→19:25)
[2021-06-24] MEDS: INSULIN GLARGINE, HUMAN 1 UNIT/0.01 ML SQ SCH (10:33)
--- NOTE | 2021-06-24 10:42 | Discharge Summary ---
Discharge Provider Provider Patient information: Note initiated : 06/24/21 at 10:40 am Service Date, if different from initiated Date: [] Patient: Kayleen Wilson 71 y/o F admitted on 06/23/21 for Low h&h, lower gi bleed. Chief Complaint: [] Date of admission: 06/23/21 21:02 Discharge date: 06/25/21 Primary care physician: Papo Guerra Consults: 06/23/21 Consult to Physician [CONS] Stat Comment: Consulting Provider: Rock Henson Reason For Exam: Physician to Consult 06/23/21 21:19 Consult to Physician [CONS] Routine Comment: Consulting Provider: Tommie Villafana Reason For Exam: Physician to Consult Discharge Meds Discharge Medications Home Medications albuterol sulfate 90 mcg/actuation aerosol inhaler 2 puff INHALATION Q4-6H PRN g 01/20/16 [History Confirmed 06/23/21 Last Taken 06/23/21 16:00] blood sugar diagnostic 01/20/16 [History Confirmed 03/10/21 Last Taken Unknown] blood-glucose meter 01/20/16 [History Confirmed 03/10/21 Last Taken Unknown] fluoxetine 20 mg capsule 20 mg PO QDAY 01/20/16 [History Confirmed 06/23/21 Last Taken 06/22/21 08:00] albuterol sulfate 0.63 mg/3 mL solution for nebulization 2.5 mg INHALATION Q4H PRN 04/08/16 [History Confirmed 06/23/21 Last Taken 06/23/21 13:00] budesonide-formoterol [Symbicort] 2 inh INHALATION BID 07/03/17 [History Confirmed 06/23/21 Last Taken 06/23/21 10:00] cholecalciferol (vitamin D3) 125 mcg (5,000 unit) capsule 5,000 unit PO QDAY 01/23/19 [History Confirmed 06/23/21 Last Taken 06/22/21 08:00] atorvastatin 20 mg tablet 20 mg PO QHS tab 03/27/19 [History Confirmed 06/23/21 Last Taken 06/21/21 19:00] melatonin 10 mg capsule 10 mg PO HS 12/31/19 [History Confirmed 06/23/21 Last Taken 06/21/21 21:00] insulin glargine 100 unit/mL (3 mL) subcutaneous pen 25 unit SUBCUT QAMAC 20 Days ml 03/16/20 [History Confirmed 06/23/21 Last Taken 06/23/21 07:00] gabapentin 400 mg capsule 400 mg PO QHS #90 cap 10/26/20 [Rx Confirmed 06/23/21 Last Taken 06/21/21 21:00] Automated BP Cuff and pulse See Rx Instructions .ROUTE .COMPLEX #1 ea 02/19/21 [Rx Confirmed 06/23/21 Last Taken Unknown] sitagliptin 25 mg tablet 25 mg PO QDAY 02/19/21 [History Confirmed 06/23/21 Last Taken 06/22/21 07:00] furosemide 40 mg tablet 40 mg PO 0800,1600 03/10/21 [History Confirmed 06/23/21 Last Taken 06/22/21 08:00] diltiazem HCl 30 mg PO TID 06/23/21 [History Confirmed 06/23/21 Last Taken 06/23/21 12:00] insulin glargine U-300 conc 35 unit SUBCUT 1900 06/23/21 [History Confirmed 06/23/21 Last Taken 06/21/21 19:00] omeprazole 40 mg PO BID #30 cap 06/25/21 [Rx Last Taken Unknown] COURSE Hospital Course Hospital course: Interval history: History of present illness: Ms. Wilson is a 71 year old F Went into pulmonary hospital last night short of breath. She says they told her she had fluid on her lungs and gave her 60 mg of Lasix this morning she was urinating quite a bit as her shortness of breath is improved. However today she had dark tarry stools guaiac positive with a hemoglobin of 5.7 this is transferred here. She is mildly tachycardic but blood pressure stable. Case discussed with Dr. Villafana who will perform endoscopy. Patient states she has chronic cough from COPD is on 3 L normally. She says she has chronic edema in her legs but that has not changed. And she has a chronic chronic troponin elevation noted in the ER. She denies chest pain. She did have some dizziness lightheadedness yesterday. 06/24 Patient says she feels better today. Denies bloody stools overnight. No other new complaints. Has chronic cough and shortness of breath. Chronic cough stable patient states shortness of breat 06/25 EGD found duodenal ulcer. Patient will be on twice daily PPI for a month and then once daily thereafter. Continue to home patient aspirin for now. A/P Narrative: A: *GI bleed: *Anemia, acute blood loss on chronic: -s/p 2prbc (06/24) with good response *Acute on chronic Diastolic CHF: -s/p lasix at outside facility -cxr improved *COPD(3L NC @home): *COVID (+): no change in couch/dyspnea per pt *CKD IV: Follows with Dr. Tran *DM: *HTN/HLD: *GERD: *Obesity: Discharge diagnosis: GI bleed CHF Covid positive anemia Secondary discharge diagnosis: COPD, chronic kidney disease diabetes hypertension GERD obesity Time Spent with Patient Time attestation: Total time spent providing and/or coordinating discharge services: Time spent: Greater than 30 minutes EXAM Constitutional Vitals: Temp Pulse Resp BP Pulse Ox 97.8 F 87 16 102/60 95 06/24/21 08:00 06/24/21 08:00 06/24/21 08:00 06/24/21 08:00 06/24/21 08:00 Discharge Data Data Completed and Pending Labs on day of discharge: Labs from last 24 hours 06/24/21 06/24/21 06/24/21 06:40 06:40 06:40 WBC 12.7 H RBC 2.70 L Hgb 8.2 L Hct 26.3 L MCV 97.4 MCH 30.4 MCHC 31.2 RDW 13.4 Plt Count 275 MPV 8.7 Neut % (Auto) 87.0 H Lymph % (Auto) 3.9 L [place] % (Auto) 8.9 Eos % (Auto) 0 Baso % (Auto) 0.2 Lymph # (Auto) 0.50 L [place] # (Auto) 1.14 H Eos # (Auto) 0 Baso # (Auto) 0.02 Absolute Neutrophils 11.08 H PT 14.2 INR 1.0 APTT Sodium 132 L Potassium 4.8 Chloride 99 Carbon Dioxide 21 L Anion Gap 12.0 BUN 55 H Creatinine 2.6 H GFR Calculation 18 Glucose 282 H Uric Acid 8.7 H Calcium 9.0 Phosphorus 3.8 Magnesium 1.9 Total Bilirubin 0.2 Direct Bilirubin < 0.2 GGT 19 AST 16 ALT 13 Alkaline Phosphatase 49 Lactate Dehydrogenase 301 H Troponin T B-Natriuretic Peptide Total Protein 6.4 Albumin 2.9 L Globulin 3.5 Albumin/Globulin Ratio 0.8 L Triglycerides 150 H 06/23/21 06/23/21 06/23/21 17:16 17:16 17:15 WBC RBC Hgb Hct MCV MCH MCHC RDW Plt Count MPV Neut % (Auto) Lymph % (Auto) [place] % (Auto) Eos % (Auto) Baso % (Auto) Lymph # (Auto) [place] # (Auto) Eos # (Auto) Baso # (Auto) Absolute Neutrophils PT 13.9 INR 1.0 APTT 38.0 H Sodium Potassium Chloride Carbon Dioxide Anion Gap BUN Creatinine GFR Calculation Glucose Uric Acid Calcium Phosphorus Magnesium Total Bilirubin Direct Bilirubin GGT AST ALT Alkaline Phosphatase Lactate Dehydrogenase Troponin T 0.11 H* B-Natriuretic Peptide Pending Total Protein Albumin Globulin Albumin/Globulin Ratio Triglycerides 06/23/21 06/23/21 17:15 17:15 WBC 8.3 RBC 1.94 L Hgb 5.7 L* Hct 18.7 L* MCV 96.4 MCH 29.4 MCHC 30.5 L RDW 13.2 Plt Count 267 MPV 8.9 Neut % (Auto) 94.3 H Lymph % (Auto) 3.6 L [place] % (Auto) 2.0 Eos % (Auto) 0 Baso % (Auto) 0.1 Lymph # (Auto) 0.30 L [place] # (Auto) 0.17 Eos # (Auto) 0 Baso # (Auto) 0.01 Absolute Neutrophils 7.86 PT INR APTT Sodium 133 Potassium 4.8 Chloride 97 Carbon Dioxide 21 L Anion Gap 15.0 BUN 49 H Creatinine 2.4 H GFR Calculation 20 Glucose 394 H Uric Acid Calcium 8.8 Phosphorus Magnesium Total Bilirubin < 0.2 Direct Bilirubin GGT AST 13 ALT 13 Alkaline Phosphatase 53 Lactate Dehydrogenase Troponin T B-Natriuretic Peptide Total Protein 6.6 Albumin 3.1 L Globulin 3.5 Albumin/Globulin Ratio 0.9 L Triglycerides Discharge Plan Patient/Caregiver Discharge Instructions Activity: increase activity as tolerated Diet: Consistent Carbohydrate Prescriptions: Continued gabapentin 400 mg capsule 400 mg PO QHS Qty: 90 RF: 3 (DME) blood-glucose meter [Trueresult Blood Glucose Systm] misc See Dose Instructions .ROUTE .MEDSUPPLY RF: 0 (DME) blood sugar diagnostic [Truetest Test Strips] strip See Dose Instructions .ROUTE .MEDSUPPLY RF: 0 albuterol sulfate [ProAir HFA] 90 mcg/actuation HFA aerosol inhaler 2 puff INHALATION Q4-6H PRN (Reason: Shortness Of Breath) RF: 0 fluoxetine 20 mg capsule 20 mg PO QDAY RF: 0 albuterol sulfate 0.63 mg/3 mL solution for nebulization 2.5 mg INHALATION Q4H PRN (Reason: Shortness Of Breath) RF: 0 insulin glargine 100 unit/mL (3 mL) insulin pen 25 unit subcut QAMAC 20 Days RF: 0 budesonide-formoterol 2 inh INHALATION BID RF: 0 cholecalciferol (vitamin D3) 5,000 unit capsule 5,000 unit PO QDAY RF: 0 atorvastatin 20 mg tablet 20 mg PO QHS RF: 0 melatonin 10 mg capsule 10 mg PO HS RF: 0 Januvia 25 mg tablet 25 mg PO QDAY RF: 0 Automated BP Cuff and pulse See Rx Instructions .ROUTE .COMPLEX Qty: 1 RF: 0 furosemide 40 mg tablet 40 mg PO 0800,1600 RF: 0 diltiazem HCl 30 mg tablet 30 mg PO TID RF: 0 insulin glargine U-300 conc 300 unit/mL (3 mL) Insulin Pen 35 unit SUBCUT 1900 RF: 0 Changed omeprazole 40 mg capsule,delayed release(DR/EC) 40 mg PO BID Qty: 30 RF: 0 Discontinued prednisone 10 mg tablet 10 mg PO QDAY RF: 0 Follow Up Plan Follow up with: Tommie Villafana MD [Physician] - Papo Guerra MD [Primary Care Provider] - Patient Disposition: Home, Self-Care Prognosis: Fair Overall status at discharge: patient is progressing back to baseline Discharge Orders: Discharge Order (Routine); Ordered 06/25/21 [facility]/Pulmonary Embolism Present on Admission: No
[2021-06-24] MEDS ORDERED: MIDAZOLAM 2 MG/2 ML VIAL IV SCH (11:00)
[2021-06-24] MEDS ORDERED: PROPOFOL 200 MG/20 ML VIAL IV SCH (11:00)
--- NOTE | 2021-06-24 11:36 | EGD Procedure Note ---
EGD Procedure Notes Procedure Information Patient information: Note initiated : 06/24/21 at 11:34 am Service Date: 06/23/21 Patient: Kayleen Wilson 71 y/o F admitted on 06/23/21 for Low h&h, lower gi bleed. Pre-op diagnosis general: Upper GI bleed Post-Op Diagnosis general: Duodenal ulcer Procedure: Esophogogastroduodenoscopy Procedure Narrative: After risk benefits and alternatives to the procedure were discussed with the patient at length she verbalized understanding and desire to continue with the procedure. Patient was taken to endoscopy. Surgical timeout was taken to verify patient and procedure being performed sedation was administered with 2 mg of Versed and 130 mcg of propofol. An adult gastroscope was entered and advanced under direct vision into the sec ond portion of the duodenum. The antrum was fully inspected, the scope was retroflexed in the stomach. Full examination revealed small ulceration the transition between the first and second part of the duodenum, no active bleed. The GE junction was at 35 cm and the esophagus was normal on full exam. Patient tolerated procedure well. Assessment: Duodenal ulcer, no active bleed. Recommend antiulcer medications, repeat EGD 6 weeks Image EGD: 1. Full exam 2. Retroflexion normal 3. Duodenal ulcer, no active bleed
[2021-06-24] MEDS: PANTOPRAZOLE 40 MG TABLET PO SCH ×2 (12:51→16:44)
[2021-06-24] MEDS ORDERED: INSULIN GLARGINE, HUMAN 1 UNIT/0.01 ML SQ SCH (19:00)
[2021-06-24] MEDS ORDERED: OMEPRAZOLE 20 MG CAPSULE PO SCH (21:00)
[2021-06-24] MEDS ORDERED: MELATONIN 3 MG TABLET PO SCH (21:00)
[2021-06-24] MEDS ORDERED: GABAPENTIN 400 MG CAPSULE PO SCH (21:00)
[2021-06-24] MEDS ORDERED: ATORVASTATIN 20 MG TABLET PO SCH (21:00)
[2021-06-25] MEDS: 0.9 % SODIUM CHLORIDE 10 ML SYRINGE IV SCH ×2 (05:14→14:32)
[2021-06-25 07:46] LABS: Basophils # (Auto) 0.03 K/mcL (0.00-0.30); Basophils % (Auto) 0.3 % (0.0-2.0); Eosinophils # (Auto) 0.46 K/mcL (0.00-0.70); Eosinophils % (Auto) 4.2 % (0.0-7.0); Hematocrit 25.8 % (34.1-44.9); Hemoglobin 7.7 g/dL (11.2-15.7); Lymphocytes % (Auto) 7.3 % (15.5-49.0); Mean Cell Volume 98.9 fL (80.0-100.0); Mean Corpuscular HGB Conc 29.8 g/dL (31.0-36.0); Mean Platelet Volume 8.3 fL (7.4-10.4); Monocytes # (Auto) 1.06 K/mcL (0.10-0.90); Monocytes % (Auto) 9.7 % (1.0-12.0); Neutrophils % (Auto) 78.5 % (38.0-78.0); Platelet Count 312 K/mcL (140-440); RBC 2.61 M/mcL (3.59-5.38); Red Cell Distribution Width 13.7 % (11.5-14.5)
[2021-06-25 08:14] LABS: Blood Urea Nitrogen 60 mg/dL (8-23); Carbon Dioxide 23 mmol/L (22-30); Chloride 101 mmol/L (96-108); Glomerular Filtration Rate 19; Glucose 83 mg/dL (70-105)
[2021-06-25] MEDS: IPRATROPIUM/ALBUTEROL 3 ML AMPUL.NEB NEB PRN (08:38)
[2021-06-25] MEDS: INSULIN LISPRO 1 UNIT/0.01 ML UNIT SQ SCH ×2 (10:37→12:22)
[2021-06-25] MEDS: PANTOPRAZOLE 40 MG TABLET PO SCH (10:44)
[2021-06-25] MEDS: FUROSEMIDE 40 MG TABLET PO SCH ×2 (10:44→15:36)
[2021-06-25] MEDS: DILTIAZEM 30 MG TABLET PO SCH ×2 (10:44→15:36)
[2021-06-25] MEDS: FLUoxetine HCL 20 MG CAPSULE PO SCH (10:44)
[2021-06-25] MEDS: INSULIN GLARGINE, HUMAN 1 UNIT/0.01 ML SQ SCH (10:44)
== END 2021-06-25 15:17 | disposition home or self-care (01) | DRG 377 ==
LOC: ED 16:09 → MEDSUR 21:02
PROVIDERS: ADMIT Internal Medicine; ATTEND Internal Medicine